=== PATIENT | female | born 2000 | race African-American/Black ===

== ENCOUNTER 2019-08-26 11:49 | Emergency (ER) | payer MEDICAID, OTHER ==
[~2019-08-26] VITALS: Ht 160 cm; Wt 105.0 kg
[2019-08-26 11:51] VITALS: BP 134/77
[2019-08-26] MEDS ORDERED: IBUPROFEN 200 MG TABLET ONE (12:10)
--- NOTE | 2019-08-26 12:18 | NUR ---
MEDS ADMIN PER SEP. XRAY COMPLETE.
[2019-08-26] MEDS ORDERED: IBUPROFEN 600 MG TABLET PO ONE (12:30)
== END 2019-08-26 12:38 | disposition home or self-care (01) ==
LOC: ED 12:10
DX: S93.401A Sprain of unspecified ligament of right ankle, initial encounter (principal); I10 Essential (primary) hypertension; W10.9XXA Fall (on) (from) unspecified stairs and steps, initial encounter; Y93.89 Activity, other specified; Y92.410 Unspecified street and highway as the place of occurrence of the external cause; Y99.8 Other external cause status
CPT/HCPCS: 99283

== ENCOUNTER 2021-01-26 09:06 | Emergency (ER) | payer MEDICAID, OTHER ==
[~2021-01-26] VITALS: Ht 160 cm; Wt 99.2 kg
--- NOTE | 2021-01-26 09:18 | NUR ---
PATIENT WALKED BACK FROM TRIAGE WITH CHIEF C/O ABD CRAMPS AND DIARRHEA SINCE FRIDAY. PATIENT REPORTS SHE STARTED VOMITING LAST NIGHT AND THIS MORNING NOTICED DARK RED BLOOD IN HER STOOL. PATIENT CONNECTED TO MONITOR, VSS, NADN, CALL LIGHT WITHIN REACH.
--- NOTE | 2021-01-26 10:06 | NUR ---
PATIENT LAYING IN GURNEY WATCHING TV, NADN, CONNECTED TO MONITOR, VSS, CALL LIGHT WITHIN REACH. WAITING FOR ORDERS.
[2021-01-26] MEDS ORDERED: HYDROcodone/APAP 5/325 TABLET ONE (10:27)
[2021-01-26] MEDS ORDERED: ONDANSETRON ODT 4 MG ONE (10:27)
[2021-01-26] MEDS ORDERED: DICYCLOMINE 10 MG/ML, 2ML ONE (10:27)
[2021-01-26] MEDS ORDERED: HYDROcodone/APAP 5/325 TABLET PO ONE (10:30)
[2021-01-26] MEDS ORDERED: DICYCLOMINE 10 MG/ML, 2ML IM ONE (10:30)
[2021-01-26] MEDS ORDERED: ONDANSETRON ODT 4 MG PO ONE (10:30)
--- NOTE | 2021-01-26 10:31 | NUR ---
PATIENT AMBULATED TO BATHROOM WITH STEADY GAIT FOR URINE AND STOOL SAMPLE.
--- NOTE | 2021-01-26 10:44 | NUR ---
PATIENT UNABLE TO LEAVE STOOL SAMPLE AT THIS TIME, URINE COLLECTED AND SENT TO LAB. PATIENT MEDICATED PER eMAR, CONNECTED TO MONITOR, VSS, CALL LIGHT WITHIN REACH.
[2021-01-26 10:56] LABS: BASOPHILS % (AUTO) 1 % (0-1); EOSINOPHILS % (AUTO) 2 % (1-7); LYMPHOCYTES % (AUTO) 27 % (22-44); MEAN CORPUSCULAR HEMOGLOBIN 29.3 pg (27.0-34.8); MEAN CORPUSCULAR HGB CONC 33.2 g/dL (32.4-35.8); MEAN PLATELET VOLUME 7.4 fL (7.4-10.4); MONOCYTES % (AUTO) 11 % (2-9); NEUTROPHILS % (AUTO) 59 % (42-75); PLATELET COUNT 322 x10^3/uL (130-400); RED BLOOD COUNT 4.41 x10^6/uL (3.82-5.3); RED CELL DISTRIBUTION WIDTH 15.2 % (9.6-15.2)
[2021-01-26 11:01] LABS: MICROSCOPIC AUTO
[2021-01-26 11:06] LABS: ALANINE AMINOTRANSFERASE 22 U/L (12-78); ALBUMIN 3.1 g/dL (3.4-5.0); ANION GAP 3 mmol/L (5-15); CALCIUM 8.7 mg/dL (8.5-10.1); CHLORIDE 110 mmol/L (98-107); CREATININE 0.93 mg/dL (0.55-1.02)
[2021-01-26 11:08] LABS: ALKALINE PHOSPHATASE 74 U/L (45-117); BILIRUBIN,TOTAL 0.3 mg/dL (0.2-1.0); TOTAL PROTEIN 7.2 g/dL (6.4-8.2)
--- NOTE | 2021-01-26 11:18 | NUR ---
PATIENT AMBULATED TO BATHROOM WITH STEADY GAIT TO TRY AND LEAVE STOOL SAMPLE.
[2021-01-26 11:39] VITALS: BP 126/79
--- NOTE | 2021-01-26 11:41 | NUR ---
PATIENT UNABLE TO LEAVE STOOL SAMPLE, RECONNECTED TO MONITORS, VSS, REPORTS PAIN DOWN FROM A 5/10 TO A 3/10, CALL LIGHT WITHIN REACH. PATIENT UP FOR RECHECK.
--- NOTE | 2021-01-26 11:46 | NUR ---
ERMD AT BEDSIDE TO DISCUSS POC.
--- NOTE | 2021-01-26 12:04 | NUR ---
Patient given discharge instructions and prescriptions and they have confirmed that they understand the instructions. Patient ambulatory with steady gait. NAD, all questions answered appropriately, denies additional needs at this time. No personal belongings left in room after discharge.
== END 2021-01-26 12:05 | disposition home or self-care (01) ==
LOC: ED 09:46
DX: R10.84 Generalized abdominal pain (principal); R11.2 Nausea with vomiting, unspecified; R19.7 Diarrhea, unspecified; I10 Essential (primary) hypertension
CPT/HCPCS: 36415; 80053; 81001; 83690; 85025; 96372; 99283; J0500; Q0162

== ENCOUNTER 2021-02-22 09:56 | Emergency (ER) | payer MEDICAID ==
[~2021-02-22] VITALS: Ht 160 cm; Wt 100.0 kg
[2021-02-22] MEDS ORDERED: KETOROLAC 30 MG/1 ML IM ONE (10:30)
[2021-02-22] MEDS ORDERED: KETOROLAC 60 MG/2 ML ONE (10:33)
--- NOTE | 2021-02-22 10:36 | NUR ---
PATIENT WALKED BACK FROM TRIAGE WITH CHIEF C/O VAGINAL PAIN SINCE THIS MORNING. PATIENT STATES PAIN FEELS LIKE "SOMEONE IS STABBING ME IN THAT AREA." PATIENT REPORTS BLEEDING X20 DAYS, GOING THROUGH 2-3 PADS PER DAY. NADN, CONNECTED TO MONITOR, VSS, CALL LIGHT WITHIN REACH.
[2021-02-22 10:59] LABS: BASOPHILS % (AUTO) 1 % (0-1); EOSINOPHILS % (AUTO) 1 % (1-7); LYMPHOCYTES % (AUTO) 28 % (22-44); MEAN CORPUSCULAR HEMOGLOBIN 29.1 pg (27.0-34.8); MEAN CORPUSCULAR HGB CONC 32.9 g/dL (32.4-35.8); MEAN PLATELET VOLUME 7.2 fL (7.4-10.4); MONOCYTES % (AUTO) 7 % (2-9); NEUTROPHILS % (AUTO) 63 % (42-75); PLATELET COUNT 361 x10^3/uL (130-400); RED BLOOD COUNT 4.34 x10^6/uL (3.82-5.3); RED CELL DISTRIBUTION WIDTH 14.4 % (9.6-15.2)
[2021-02-22 11:07] LABS: ALBUMIN 2.9 g/dL (3.4-5.0); ANION GAP 6 mmol/L (5-15); CALCIUM 8.4 mg/dL (8.5-10.1); CHLORIDE 113 mmol/L (98-107); CREATININE 0.76 mg/dL (0.55-1.02)
--- NOTE | 2021-02-22 11:22 | NUR ---
PATIENT TO ULTRASOUND.
[2021-02-22 12:00] VITALS: BP 141/84
== END 2021-02-22 12:02 | disposition home or self-care (01) ==
LOC: ED 10:01
DX: N93.8 Other specified abnormal uterine and vaginal bleeding (principal); I10 Essential (primary) hypertension
CPT/HCPCS: 36415; 76830; 80048; 82040; 84703; 85025; 96372; 99284; J1885